=== PATIENT | female | born 1985 | race Caucasian/White ===

== ENCOUNTER 2017-02-09 00:47 | Emergency (ER) | payer MEDICAID ==
[~2017-02-09] VITALS: Ht 157.5 cm; Wt 90.7 kg
[~2017-02-09 00:47] MED LIST: AMOXICILLIN500 MG ORAL; NKM; PREDNISONE20 MG ORAL; PRENATAL DHA+C1 EACH PO; XOPENEX HFA15 GM IH
[2017-02-09 01:01] VITALS: BP 156/67
--- NOTE | 2017-02-09 02:27 | Emergency Room Report ---
History of Present Illness General Chief Complaint: Female Urogenital Problems Source: Patient Present Illness HPI A 31-year-old female who had a history of even when she is on IUD. Since then she had partial tubal ligation and control implant. She is currently on her menstrual period. She presents with chief complaint of possible tampon stuck in the vaginal area. She worried that she may be . Denies any fever or chills. Denies any nausea vomiting. She said she placed a tampon in yesterday but did not remember taking it out. Unable to find it Allergies: Coded Allergies: No Known Allergies (Unverified , 09/12/13) Patient History Past Medical History: see triage record, old chart reviewed Past Surgical History: none Pertinent Family History: none Social History: Denies: smoking Last Menstrual Period: 02/05/17 Now: No - unk : 7 Para: 4 Immunizations: other Reviewed Nursing Documentation: PMH: Agreed, PSxH: Agreed Nursing Documentation-PMH Past Medical History: No History, Except For Hx Asthma: Yes Review of Systems Eye: Denies: blurred vision, eye pain ENT: Denies: ear pain, nose congestion, throat swelling Respiratory: Denies: cough, shortness of breath Cardiovascular: Denies: chest pain, palpitations Gastrointestinal: Denies: abdominal pain, diarrhea, nausea, vomiting Musculoskeletal: Denies: back pain, joint pain Skin: Denies: rash Neurological: Denies: headache, numbness Endocrine: Denies: increased thirst, increased urine Hematologic/Lymphatic: Denies: easy bruising All Other Systems: negative except mentioned in HPI Physical Exam Vital Signs Date Time Temp Pulse Resp B/P Pulse Ox O2 Delivery O2 Flow Rate FiO2 02/09/17 00:51 98.8 66 14 156/67 98 Room Air vitals with htn Sp02 EP Interpretation: reviewed, normal General Appearance: well appearing, no apparent distress, alert Head: normocephalic, atraumatic Eyes: bilateral eye EOMI, bilateral eye PERRL ENT: hearing grossly normal, normal pharynx Neck: full range of motion, supple, no meningismus Respiratory: chest non-tender, lungs clear, normal breath sounds Cardiovascular #1: regular rate, rhythm, no murmur Gastrointestinal: normal bowel sounds, non tender, no mass, no organomegaly, no bruit, non-distended Genitourinary: other - pelvic done with female RN as industrial relations manager. scant bleeding. no tampon Musculoskeletal: back normal, gait/station normal, normal range of motion Psychiatric: mood/affect normal Skin: warm/dry Medical Decision Making Diagnostic Impression: Primary Impression: Foreign body in vagina Qualified Codes: T19.2XXA - Foreign body in vulva and vagina, initial encounter ER Course Patient presents with questionable foreign body in the vaginal area in the form of a tampon. I did not see any foreign body. She's not . Patient reassured and discharged home. Last Vital Signs Date Time Temp Pulse Resp B/P Pulse Ox O2 Delivery O2 Flow Rate FiO2 02/09/17 00:51 98.8 66 14 156/67 98 Room Air Status: unchanged Disposition: HOME, SELF-CARE Condition: Stable Additional Instructions: Follow up with your doctor as needed. Return for any concerns. BARRINGTON VALENCIA M.D. Feb 09, 2017 02:27
[2017-02-09 02:34] VITALS: BP 129/87
== END 2017-02-09 02:37 | disposition home or self-care (01) ==
LOC: EMR 01:08
DX: T19.2XXA Foreign body in vulva and vagina, initial encounter (principal); X58.XXXA Exposure to other specified factors, initial encounter; Y92.89 Other specified places as the place of occurrence of the external cause; Z97.5 Presence of (intrauterine) contraceptive device; J45.909 Unspecified asthma, uncomplicated
CPT/HCPCS: 81025; 99282

== ENCOUNTER 2018-01-02 00:12 | Emergency (ER) | payer MEDICAID ==
[~2018-01-02] VITALS: Ht 157.5 cm; Wt 99.3 kg
[2018-01-02 00:25] VITALS: BP 146/91
[2018-01-02] MEDS ORDERED: Morphine Sulfate 4mg/ml Inj IVP ONE ×2 (00:30→02:00)
--- NOTE | 2018-01-02 01:11 | Emergency Room Report ---
History of Present Illness General Chief Complaint: Multiple Trauma/Fall Source: Patient Present Illness HPI 32-year-old female presents ED for evaluation. EMS notes that patient had a mechanical trip and fall in her driveway landing face forward tonight. Presents with laceration to her nose and chin. In c-collar. Was drinking all day today. Complains of pain to her face. Sharp, 8 out of 10, nonradiating. Denies chest pain or shortness of breath. Denies any drug use. No other aggravating or relieving factors. Denies any other associated symptoms Allergies: Coded Allergies: No Known Allergies (Unverified , 09/12/13) Patient History Past Medical History: asthma Past Surgical History: none Pertinent Family History: none Social History: Reports: alcohol use, Denies: smoking, drug use Now: No Immunizations: UTD Reviewed Nursing Documentation: PMH: Agreed, PSxH: Agreed Nursing Documentation-PMH Past Medical History: No History, Except For Hx Asthma: Yes Review of Systems All Other Systems: negative except mentioned in HPI Physical Exam Vital Signs Date Time Temp Pulse Resp B/P (MAP) Pulse Ox O2 Delivery O2 Flow Rate FiO2 01/02/18 00:14 97.6 99 19 146/91 96 Room Air 97.5 Sp02 EP Interpretation: reviewed, normal General Appearance: alert, GCS 15, non-toxic, mild distress Head: normocephalic, other - bleeding/swelling to nose Eyes: bilateral eye normal inspection, bilateral eye PERRL ENT: hearing grossly normal, normal pharynx, no angioedema, normal voice, TMs + canals normal Neck: full range of motion, supple/symm/no masses Respiratory: chest non-tender, lungs clear, normal breath sounds, speaking full sentences Cardiovascular #1: regular rate, rhythm, no edema Cardiovascular #2: 2+ carotid (R), 2+ carotid (L), 2+ radial (R), 2+ radial (L) , 2+ dorsalis pedis (R), 2+ dorsalis pedis (L) Gastrointestinal: normal bowel sounds, non tender, soft, non-distended, no guarding, no rebound Rectal: deferred Genitourinary: normal inspection, no CVA tenderness Musculoskeletal: back normal, gait/station normal, normal range of motion, non- tender Neurologic: alert, oriented x3, responsive, motor strength/tone normal, sensory intact, speech normal Psychiatric: judgement/insight normal, memory normal, mood/affect normal, no suicidal/homicidal ideation Reflexes: 3+ bicep (R), 3+ bicep (L), 3+ tricep (R), 3+ tricep (L), 3+ knee (R) , 3+ knee (L) Skin: normal color, no rash, warm/dry, well hydrated Lymphatic: no adenopathy Procedures Laceration/Wound Repair Laceration/Wound Repair : Consent: Verbal Wound Location: other - nose Wound's Depth, Shape: superficial, flap Wound Explored: clean Betadine Prep?: No Wound Debrided: minimal Wound Repaired With: Dermabond Layer Closure?: No Sterile Dressing Applied?: No Splint Applied?: No Sling Applied?: No Patient Tolerated: Well Complications: None Medical Decision Making Diagnostic Impression: Primary Impression: Multiple injuries due to trauma Additional Impressions: Nasal bones, closed fracture Qualified Codes: S02.2XXA - Fracture of nasal bones, initial encounter for closed fracture Laceration of nose Qualified Codes: S01.21XA - Laceration without foreign body of nose, initial encounter ER Course Hospital Course 32-year-old female presents ED status post fall with bleeding and swelling to the face. In c-collar Differential diagnoses include: skull fx, intracranial injury, concussion Clinical course Patient placed on stretcher. After initial history and physical I ordered IVFs , pain meds, CT head, Cspine and Facial Bones CT head and C-spine unremarkable. CT Facial Bones shows bilateral nasal bone fx Wounds irrigated. There is a small laceration to the nose. Repaired with dermabond. Discussed findings with patient. Patient is safe for discharge Diagnosis - multiple injuries due to trauma, nasal fracture Stable and discharged to home with Luly Luna. wound care instructions given. Followup with PMD. Return to ED if symptoms recur or worsen CT/MRI/US Diagnostic Results CT/MRI/US Diagnostic Results #1: Imaging Test Ordered: CT Head Impression no acute process CT/MRI/US Diagnostic Results #2: Imaging Test Ordered: CT C spine Impression no acute process CT/MRI/US Diagnostic Results #3: Imaging Test Ordered: CT Facial Bone Impression bilateral nasal bone fracture Last Vital Signs Date Time Temp Pulse Resp B/P (MAP) Pulse Ox O2 Delivery O2 Flow Rate FiO2 01/02/18 00:58 97.6 01/02/18 00:14 99 19 146/91 96 Room Air Status: improved Disposition: HOME, SELF-CARE Condition: Stable Scripts Hydrocodone Bit/Acetaminophen 5-325* (NORCO 5-325*) 1 Each Tablet 1 TAB ORAL Q6H Y for For Pain, #10 TAB 0 Refills Prov: LIS NINO M.D. 01/02/18 Ibuprofen* (MOTRIN*) 600 Mg Tablet 600 MG ORAL Q8H Y for For Pain, #30 TAB 0 Refills Prov: LIS NINO M.D. 01/02/18 Referrals: NOT CHOSEN BILL/,REFERRING (PCP) LIS NINO M.D. Jan 02, 2018 01:11
[2018-01-02 03:00] VITALS: BP 107/64
[2018-01-02] MEDS ORDERED: Hydrogen Peroxide 473ml Bottle TOPIC ONE (03:30)
[2018-01-02] MEDS ORDERED: Ketorolac 30mg Inj IV ONE (03:30)
[2018-01-02] MEDS ORDERED: IBUPROFEN600 MG ORAL (05:01)
[2018-01-02] MEDS ORDERED: NORCO 5-325 TA1 EACH ORAL (05:01)
[2018-01-02 05:20] VITALS: BP 112/64
[2018-01-02 05:25] VITALS: BP 112/64
--- NOTE | 2018-01-02 09:29 | Diagnostic Imaging Report ---
Indication: Head pain status post fall Technique: Continuous helical CT scanning of the head was performed utilizing automated exposure control without intravenous contrast material. Axial and coronal reconstructions were obtained. Comparison: None CT dose: Total DLP 1435 mGycm; CTDI vol 70.4 mGy Findings: There is no acute intracranial hemorrhage, mass effect or cortical edema. The ventricles, cisterns and sulci within normal limits. The posterior fossa and fourth ventricle are unremarkable. Sellar and suprasellar regions are grossly unremarkable. Mastoid air cells are clear. There is no skull fracture. Impression: No evidence of acute intracranial hemorrhage, mass effect or cortical edema. No skull fracture. The CT scanner at [facility] is accredited by the [employer] and the scans are performed using protocols designed to limit radiation exposure to as low as reasonably achievable to attain images of sufficient resolution adequate for diagnostic evaluation.
--- NOTE | 2018-01-02 09:31 | Diagnostic Imaging Report ---
Indication: Facial pain status post fall Technique: CT maxillofacial was performed utilizing automated exposure control without intravenous contrast material. Axial and coronal images were generated. CT dose: Total DLP 519 mGycm; CTDI vol 28.2 mGy Comparison: None Findings: Fracture deformity is noted of the nasal bone tip. Orbits appear intact. There is no mandibular fracture. Temporomandibular joints are well situated. Prenasal soft tissue swelling is present. Minimal bilateral mucoperiosteal thickening is noted. Impression: Prenasal soft tissue swelling with minimally depressed fracture involving the nasal bone tip. The CT scanner at [facility] is accredited by the [employer] and the scans are performed using protocols designed to limit radiation exposure to as low as reasonably achievable to attain images of sufficient resolution adequate for diagnostic evaluation.
--- NOTE | 2018-01-02 09:33 | Diagnostic Imaging Report ---
Indication: Pain status post fall Technique: CT cervical spine was performed utilizing automated exposure control without intravenous contrast material. Axial and coronal images were generated. CT dose: Total DLP 727 mGycm; CTDI vol 30.5 mGy Comparison: None Findings: There is no acute fracture. Cervical and craniocervical alignment are within normal limits. Prevertebral soft tissues are within normal limits. Visualized lung apices are clear. Impression: No acute fracture or cervical malalignment. The CT scanner at [facility] is accredited by the [employer] and the scans are performed using protocols designed to limit radiation exposure to as low as reasonably achievable to attain images of sufficient resolution adequate for diagnostic evaluation.
== END 2018-01-02 05:25 | disposition home or self-care (01) ==
LOC: EDBD 00:12 → EDUNIT# 00:12 → EMR 00:27
DX: S01.21XA Laceration without foreign body of nose, initial encounter (principal); S02.2XXA Fracture of nasal bones, initial encounter for closed fracture; J45.909 Unspecified asthma, uncomplicated; F10.10 Alcohol abuse, uncomplicated; T14.90XA Injury, unspecified, initial encounter; M54.2 Cervicalgia; R51 Headache; W01.0XXA Fall on same level from slipping, tripping and stumbling without subsequent striking against object, initial encounter; Y92.007 Garden or yard of unspecified non-institutional (private) residence as the place of occurrence of the external cause
CPT/HCPCS: 12011; 70450; 70486; 72125; 96374; 96375; 99284; J1885; J2270; Z7502

== ENCOUNTER 2018-04-12 23:37 | Emergency (ER) | payer MEDICAID ==
[~2018-04-12] VITALS: Ht 157.5 cm; Wt 97.5 kg
[~2018-04-12 23:37] MED LIST changes: +IBUPROFEN600 MG ORAL; +NORCO 5-325 TA1 EACH ORAL
[2018-04-13 00:03] VITALS: BP 161/107
[2018-04-13] MEDS ORDERED: Ketorolac 60mg Inj IM ONE (01:00)
[2018-04-13] MEDS ORDERED: Acetaminophen 500mg (ES) tab ORAL ONE (01:15)
[2018-04-13] MEDS ORDERED: TYLENOL EXTRA500 MG ORAL (01:22)
[2018-04-13] MEDS ORDERED: LIDOCAINE700 M1 TP (01:22)
[2018-04-13 01:30] VITALS: BP 157/99
[2018-04-13 01:42] LABS: APPEARANCE,URINE CLEAR; BILIRUBIN, URINE NEGATIVE (NEGATIVE); COLOR,URINE PALE YELLOW; GLUCOSE, URINE (UA) NEGATIVE (NEGATIVE); KETONES,URINE 1+ (NEGATIVE); LEUKOCYTE ESTERASE ,URINE NEGATIVE (NEGATIVE); NITRITE,URINE NEGATIVE (NEGATIVE); PH,URINE 5 (4.5-8.0); PROTEIN,URINE NEGATIVE (NEGATIVE); UROBILINOGEN,URINE NORMAL MG/DL (0.0-1.0)
[2018-04-13 02:33] VITALS: BP 117/77
[2018-04-13 02:34] VITALS: BP 117/77
--- NOTE | 2018-04-13 04:44 | Emergency Room Report ---
History of Present Illness General Chief Complaint: Back Injury Source: Patient Present Illness HPI Patient is a 32-year-old female who the presented after increased pain to her left knee as well as her low back. Patient had reported having a recent fall at a grocery store. Patient denies any loss of consciousness. She reports having the pain to her left knee as well as severe pain to her low back. The patient denies any leg numbness or bowel or bladder dysfunction. She denied any numbness to her upper extremities. She denies any head or neck pain. Allergies: Coded Allergies: No Known Allergies (Unverified , 09/12/13) Patient History Past Medical History: see triage record Now: No Reviewed Nursing Documentation: PMH: Agreed; PSxH: Agreed Nursing Documentation-PMH Past Medical History: No Stated History Hx Asthma: Yes Review of Systems All Other Systems: negative except mentioned in HPI Physical Exam Vital Signs Date Time Temp Pulse Resp B/P (MAP) Pulse Ox O2 Delivery O2 Flow Rate FiO2 04/12/18 23:47 98.5 98 18 161/107 99 Room Air 98.4 General Appearance: well appearing, no apparent distress, alert, GCS 15 Head: normocephalic, atraumatic ENT: hearing grossly normal, normal voice Neck: full range of motion, supple Respiratory: no respiratory distress, speaking full sentences Cardiovascular #1: normal inspection Gastrointestinal: normal inspection, non tender Musculoskeletal: no calf tenderness, decreased range of mation, swelling - mild to right knee Neurologic: normal inspection, alert, oriented x3, responsive, normal gait Psychiatric: mood/affect normal Skin: other - left knee redness reportedly a birthmark. Medical Decision Making Diagnostic Impression: Primary Impression: Low back pain Additional Impression: Contusion of knee, left ER Course Patient presented for back pain.Differential diagnosis included but was not limited to herniated disc, cauda equina syndrome, abdominal aortic aneurysm, perforated ulcer, spinal epidural abscess, spinal stenosis, lumbar fracture, metastatic lesion, pyelonephritis. Because of complexity of patient's case imaging studies were ordered.The patient appears to have a lumbar strain as well as a contusion to her left knee. The patient does not appear to have any definite ligamentous injury.The patient is advised to follow up with primary care doctor in 1-2 days. Patient is advised to return if any worsening condition or if any changes in status that are concerning. This report is dictated with [employer] certified master locksmith software which may occasionally lead to discrepancies related to use of this software. Labs Test 04/13/18 01:28 Urine Color Pale yellow Urine Appearance Clear Urine pH 5 (4.5-8.0) Urine Specific [place] 1.010 (1.005-1.035) Urine Protein Negative (NEGATIVE) Urine Glucose (UA) Negative (NEGATIVE) Urine Ketones 1+ (NEGATIVE) Urine Occult Blood Negative (NEGATIVE) Urine Nitrite Negative (NEGATIVE) Urine Bilirubin Negative (NEGATIVE) Urine Urobilinogen Normal MG/DL (0.0-1.0) Urine Leukocyte Esterase Negative (NEGATIVE) Urine HCG, Qualitative Negative (NEGATIVE) Last Vital Signs Date Time Temp Pulse Resp B/P (MAP) Pulse Ox O2 Delivery O2 Flow Rate FiO2 04/13/18 02:36 98.1 04/13/18 02:34 81 18 117/77 98 Room Air Status: improved Disposition: HOME, SELF-CARE Condition: Improved Scripts Acetaminophen* (TYLENOL EXTRA STRENGTH*) 500 Mg Tablet 500 MG ORAL Q8H PRN for Prn Headache/Temp > 101, #30 TAB 0 Refills Prov: Wang Archer MD 04/13/18 Lidocaine (Lidocaine) 1 Each Adh..patch 700 MG TP DAILY, #20 PATCH Prov: Wang Archer MD 04/13/18 Patient Instructions: Back Pain, Adult, Contusion Wang Archer MD Apr 13, 2018 04:44
--- NOTE | 2018-04-13 10:44 | Diagnostic Imaging Report ---
Indication: Pain in lumbar spine after slip and fall Technique: 4 views of the lumbar spine Comparison: None Findings: Bony alignment is normal. Vertebral body heights are preserved. The disc spaces are preserved. Facet joint spaces are preserved. Intrauterine device is incidentally noted Impression: No acute process
--- NOTE | 2018-04-13 10:45 | Diagnostic Imaging Report ---
Indication: Pain in left knee after slip and fall Technique: 4 views of the left knee Comparison: None Findings: No suprapatellar effusion. No acute fractures. No dislocations. The joint spaces are normal. Impression: Negative
== END 2018-04-13 02:37 | disposition home or self-care (01) ==
LOC: EMR 04-13 00:25
DX: M54.5 Low back pain (principal); S80.02XA Contusion of left knee, initial encounter; W19.XXXA Unspecified fall, initial encounter; Y92.512 Supermarket, store or market as the place of occurrence of the external cause; J45.909 Unspecified asthma, uncomplicated
CPT/HCPCS: 72110; 81003; 81025; 99284

== ENCOUNTER 2018-11-02 01:46 | Emergency (ER) | payer MEDICAID ==
[~2018-11-02] VITALS: Ht 157.5 cm; Wt 95.3 kg
[~2018-11-02 01:46] MED LIST changes: +LIDOCAINE700 M1 TP; +TYLENOL EXTRA500 MG ORAL
[2018-11-02 03:22] VITALS: BP 117/62
--- NOTE | 2018-11-02 03:22 | NUR ---
ED Nurse Note: Patient walk in c/o upper abdominal sharp pain for 1x day. Patient reports tightness in her throat. Patient reports rectal bleeding for 4x hours. pt stated she is throwing up phlegm, pt hooked on monitor. with vs within normal limit. pt stating 10/10 epigastric pain. ermd ordered and carried out. will continue to monitor.
[2018-11-02] MEDS ORDERED: Mylanta II UD 30ml ORAL ONE (03:30)
[2018-11-02] MEDS ORDERED: Lidocaine 2% Visc 15ml soln ORAL ONE (03:30)
[2018-11-02] MEDS ORDERED: Dicyclomine HCl 10mg/5ml oral soln ORAL ONE (03:30)
[2018-11-02 03:43] LABS: BASOPHILS % (AUTO) 1.1 % (0.0-2.0); BILIRUBIN, URINE NEGATIVE (NEGATIVE); COLOR,URINE PALE YELLOW; EOSINOPHILS % (AUTO) 2.6 % (0.0-3.0); GLUCOSE, URINE (UA) NEGATIVE (NEGATIVE); HEMATOCRIT 35.4 % (37.0-47.0); HEMOGLOBIN 11.4 G/DL (12.0-16.0); KETONES,URINE NEGATIVE (NEGATIVE); LEUKOCYTE ESTERASE ,URINE 2+ (NEGATIVE); MEAN CORPUSCULAR VOLUME 82 FL (80-99); MONOCYTES % (AUTO) 4.7 % (1.0-10.0); NEUTROPHILS % (AUTO) 54.7 % (45.0-75.0); NITRITE,URINE NEGATIVE (NEGATIVE); PH,URINE 5 (4.5-8.0); PLATELET COUNT 259 K/UL (150-450); PROTEIN,URINE NEGATIVE (NEGATIVE); RED BLOOD COUNT 4.31 M/UL (4.20-5.40); RED CELL DISTRIBUTION WIDTH 14.1 % (11.6-14.8); UROBILINOGEN,URINE NORMAL MG/DL (0.0-1.0); WHITE BLOOD COUNT 7.4 K/UL (4.8-10.8)
[2018-11-02 03:51] LABS: APPEARANCE,URINE SLIGHTLY CLOUDY
[2018-11-02 03:54] LABS: ANION GAP 15 mmol/L (5-15); BLOOD UREA NITROGEN 9 mg/dL (7-18); CALCIUM 8.5 MG/DL (8.5-10.1); CARBON DIOXIDE 19 MMOL/L (21-32); CHLORIDE 104 MMOL/L (98-107); CREATININE 0.7 MG/DL (0.55-1.30); POTASSIUM 4.1 MMOL/L (3.5-5.1); SODIUM 138 MMOL/L (136-145)
[2018-11-02 03:59] LABS: ALANINE AMINOTRANSFERASE 68 U/L (12-78); ALBUMIN 3.6 G/DL (3.4-5.0); ALBUMIN/GLOBULIN RATIO 0.9 (1.0-2.7); ALKALINE PHOSPHATASE 71 U/L (46-116); ASPARTATE AMINO TRANSFERASE 32 U/L (15-37); BILIRUBIN,TOTAL 0.1 MG/DL (0.2-1.0)
[2018-11-02] MEDS ORDERED: Morphine Sulfate 4mg/ml Inj (IV/IM USE ONLY) IVP ONE (04:45)
[2018-11-02] MEDS ORDERED: Isovue-300 100ml vial INJ PRN (04:45)
--- NOTE | 2018-11-02 05:35 | NUR ---
ED Nurse Note: pt went to ct with tech
--- NOTE | 2018-11-02 05:54 | NUR ---
ED Nurse Note: pt went back from ct, pt stated the is 5/ right now. will continue to monitor.
[2018-11-02] MEDS ORDERED: RANITIDINE HCL150 MG ORAL (06:20)
[2018-11-02] MEDS ORDERED: CEPHALEXIN500 MG ORAL (06:20)
[2018-11-02] MEDS ORDERED: COLACE100 MG ORAL (06:20)
--- NOTE | 2018-11-02 06:20 | NUR ---
ED Nurse Note: pt was cleared for discharge. pt stated she feels good now. 12/04 pain. pt left the ed with all belongings. vss. pt verbalize understanding of the dc instruction and prescription.
[2018-11-02 06:26] VITALS: BP 115/75
--- NOTE | 2018-11-02 06:56 | Emergency Room Report ---
History of Present Illness General Chief Complaint: Abdominal Pain Source: Patient Present Illness HPI 33-year-old female presents ED for evaluation. Complaining of abdominal pain. Sharp, epigastric, 8 out of 10, nonradiating. Notes nausea and vomiting. Denies any diarrhea. States there is blood in her stool. History of hemorrhoids. Denies taking blood thinners. Denies chest pain or shortness of breath. No other aggravating relieving factors. Denies any other associated symptoms Allergies: Coded Allergies: No Known Allergies (Unverified , 09/12/13) Patient History Past Medical History: none Past Surgical History: none Pertinent Family History: none Social History: Denies: smoking, alcohol use, drug use Last Menstrual Period: 10/23/2018 Now: No : 7 Para: 4 Immunizations: UTD Reviewed Nursing Documentation: PMH: Agreed; PSxH: Agreed Nursing Documentation-PMH Past Medical History: No History, Except For Hx Asthma: Yes Review of Systems All Other Systems: negative except mentioned in HPI Physical Exam Vital Signs Date Time Temp Pulse Resp B/P (MAP) Pulse Ox O2 Delivery O2 Flow Rate FiO2 11/02/18 02:26 98.1 89 16 111/61 96 Room Air Sp02 EP Interpretation: reviewed, normal General Appearance: no apparent distress, alert, GCS 15, non-toxic Head: normocephalic, atraumatic Eyes: bilateral eye normal inspection, bilateral eye PERRL ENT: hearing grossly normal, normal pharynx, no angioedema, normal voice Neck: full range of motion, supple/symm/no masses Respiratory: chest non-tender, lungs clear, normal breath sounds, speaking full sentences Cardiovascular #1: regular rate, rhythm, no edema Cardiovascular #2: 2+ carotid (R), 2+ carotid (L), 2+ radial (R), 2+ radial (L) , 2+ dorsalis pedis (R), 2+ dorsalis pedis (L) Gastrointestinal: normal bowel sounds, soft, non-distended, no guarding, no rebound, tenderness - epigastric Rectal: deferred Genitourinary: normal inspection, no CVA tenderness Musculoskeletal: back normal, gait/station normal, normal range of motion, non- tender Neurologic: alert, oriented x3, responsive, motor strength/tone normal, sensory intact, speech normal Psychiatric: judgement/insight normal, memory normal, mood/affect normal, no suicidal/homicidal ideation Reflexes: 3+ bicep (R), 3+ bicep (L), 3+ tricep (R), 3+ tricep (L), 3+ knee (R) , 3+ knee (L) Skin: normal color, no rash, warm/dry, well hydrated Lymphatic: no adenopathy Medical Decision Making Diagnostic Impression: Primary Impression: UTI (urinary tract infection) Qualified Codes: N39.0 - Urinary tract infection, site not specified Additional Impression: Gastritis Qualified Codes: K29.00 - Acute gastritis without bleeding ER Course Hospital Course 33-year-old F presents to ED with abdominal pain Differential diagnosis includes-appendicitis, cholecystitis, small bowel obstruction, gastritis, Clinical course Patient placed on stretcher. After initial history and physical I ordered labs , IV fluids, pain medications and CT scan Labs - no leukocytosis, electrolytes ok, LFTs normal, UA + bacteria CT scan shows no acute pathology Upon reassessment, patient states pain has improved. Discussed findings with patient. Safe for discharge. We'll prescribe antibiotics and stool softeners Patient states she has a PMD I feel this is a highly complex case requiring extensive working including EKG/ Rhythm strip, Xray/CT/US, Blood/urine lab work, repeat exams while in ED, and administration of strong opiates/narcotics for pain control, admission to hospital or close patient follow up. Diagnosis - UTI, gastritis Stable and discharged to home with Rx Zantac, keflex, colace. Followup with PMD. Return to ED if symptoms recur or worsen Labs Test 11/02/18 03:33 White Blood Count 7.4 K/UL (4.8-10.8) Red Blood Count 4.31 M/UL (4.20-5.40) Hemoglobin 11.4 G/DL (12.0-16.0) Hematocrit 35.4 % (37.0-47.0) Mean Corpuscular Volume 82 FL (80-99) Mean Corpuscular Hemoglobin 26.5 PG (27.0-31.0) Mean Corpuscular Hemoglobin Concent 32.3 G/DL (32.0-36.0) Red Cell Distribution Width 14.1 % (11.6-14.8) Platelet Count 259 K/UL (150-450) Mean Platelet Volume 6.9 FL (6.5-10.1) Neutrophils (%) (Auto) 54.7 % (45.0-75.0) Lymphocytes (%) (Auto) 37.0 % (20.0-45.0) Monocytes (%) (Auto) 4.7 % (1.0-10.0) Eosinophils (%) (Auto) 2.6 % (0.0-3.0) Basophils (%) (Auto) 1.1 % (0.0-2.0) Urine Color Pale yellow Urine Appearance Slightly cloudy Urine pH 5 (4.5-8.0) Urine Specific [place] 1.015 (1.005-1.035) Urine Protein Negative (NEGATIVE) Urine Glucose (UA) Negative (NEGATIVE) Urine Ketones Negative (NEGATIVE) Urine Blood Negative (NEGATIVE) Urine Nitrite Negative (NEGATIVE) Urine Bilirubin Negative (NEGATIVE) Urine Urobilinogen Normal MG/DL (0.0-1.0) Urine Leukocyte Esterase 2+ (NEGATIVE) Urine RBC 0-2 /HPF (0 - 2) Urine WBC 10-15 /HPF (0 - 2) Urine Squamous Epithelial Cells Moderate /LPF (NONE/OCC) Urine Bacteria Moderate /HPF (NONE) Urine HCG, Qualitative Negative (NEGATIVE) Sodium Level 138 MMOL/L (136-145) Potassium Level 4.1 MMOL/L (3.5-5.1) Chloride Level 104 MMOL/L (98-107) Carbon Dioxide Level 19 MMOL/L (21-32) Anion Gap 15 mmol/L (5-15) Blood Urea Nitrogen 9 mg/dL (7-18) Creatinine 0.7 MG/DL (0.55-1.30) Estimat Glomerular Filtration Rate > 60 mL/min (>60) Glucose Level 122 MG/DL (74-106) Calcium Level 8.5 MG/DL (8.5-10.1) Total Bilirubin 0.1 MG/DL (0.2-1.0) Aspartate Amino Transf (AST/SGOT) 32 U/L (15-37) Alanine Aminotransferase (ALT/SGPT) 68 U/L (12-78) Alkaline Phosphatase 71 U/L (46-116) Total Protein 7.7 G/DL (6.4-8.2) Albumin 3.6 G/DL (3.4-5.0) Globulin 4.1 g/dL Albumin/Globulin Ratio 0.9 (1.0-2.7) Lipase 112 U/L (73-393) CT/MRI/US Diagnostic Results CT/MRI/US Diagnostic Results : Imaging Test Ordered: CT A/P Impression no acute process Last Vital Signs Date Time Temp Pulse Resp B/P (MAP) Pulse Ox O2 Delivery O2 Flow Rate FiO2 11/02/18 06:26 98.0 78 16 115/75 99 Room Air Status: improved Disposition: HOME, SELF-CARE Condition: Stable Scripts Docusate Sodium* (COLACE*) 100 Mg Capsule 100 MG ORAL THREE TIMES A DAY, #30 CAP Prov: Jose Kulkarni MD 11/02/18 Cephalexin* (KEFLEX*) 500 Mg Capsule 500 MG ORAL EVERY 6 HOURS for 7 Days, CAP Prov: Jose Kulkarni MD 11/02/18 Ranitidine Hcl* (ZANTAC*) 150 Mg Tablet 150 MG ORAL TWICE A DAY, #30 TAB Prov: Jose Kulkarni MD 11/02/18 Patient Instructions: Gastritis, Adult, [id number] Jose Kulkarni MD Nov 02, 2018 06:56
--- NOTE | 2018-11-02 09:04 | Diagnostic Imaging Report ---
Clinical Indication: Abdominal pain Technique: No oral contrast utilized, per emergency room physician request IV administration nonionic contrast. Venous phase spiral acquisition obtained through the abdomen and pelvis. Multiplanar reconstructions were generated. Total dose length product 983.17 mGycm. CTDIvol(s) 18.6 mGy. Dose reduction achieved using automated exposure control Comparison: none Findings: The appendix is normal. No evidence of diverticulosis or diverticulitis. No small bowel distention. No free or loculated intraperitoneal gas or fluid. Distal esophagus, stomach, duodenum are unremarkable. The liver is diffusely mildly hypoattenuating. No focal abnormality. The gallbladder, bile ducts, pancreas, spleen, adrenals, kidneys are all unremarkable. No retroperitoneal or mesenteric mass or adenopathy. The uterus contains an intrauterine device within the lower uterine segment intrauterine device, arms possibly protruding into the myometrium. No pelvic mass or adenopathy. Normal uterus and ovaries otherwise. The bladder is somewhat distended, otherwise unremarkable. The included lung bases demonstrate posterior dependent atelectatic changes. The bones are unremarkable. Impression: No acute abnormality Fatty liver This agrees with the preliminary interpretation provided overnight by [facility]. The CT scanner at [facility] is accredited by the [employer] and the scans are performed using protocols designed to limit radiation exposure to as low as reasonably achievable to attain images of sufficient resolution adequate for diagnostic evaluation.
== END 2018-11-02 06:20 | disposition home or self-care (01) ==
LOC: EMR 03:00
DX: N39.0 Urinary tract infection, site not specified (principal); K29.70 Gastritis, unspecified, without bleeding; J45.909 Unspecified asthma, uncomplicated
CPT/HCPCS: 36415; 74177; 80053; 81003; 81025; 83690; 85025; 87086; 96361; 96374; 96375; 99284; J2270; J2405; Q9967; S0028